=== PATIENT | male | born 1940 | race Caucasian/White ===

== ENCOUNTER 2016-08-22 14:32 | Inpatient (IN) ==
[2016-08-22] MEDS ORDERED: ASPIRIN 325 MG TABLET PO STA (14:50)
[2016-08-22] MEDS ORDERED: ENOXAPARIN 100 MG/ML SYRINGE SUBCUT STA (14:50)
[2016-08-22] MEDS ORDERED: ASPIRIN 325 MG TABLET ONE (14:51)
[2016-08-22] MEDS ORDERED: ENOXAPARIN 100 MG/ML SYRINGE SUBCUT ONE (14:51)
--- NOTE | 2016-08-22 14:53 | EKG Report ---
Stationary ECG Study [facility] ER Test Date: 08/22/2016 2:43:50 PM Pat Name: MONSERRAT HOANG Department: Room: 262 Gender: M Commissions Analyst: : 1940 Requested by: Jerry Gonzalez Order Number: [id number] Reading MD: MARK NG Intervals [place] Rate: 63 P: 61 NM: 150 QRS: 73 QRSD: 98 T: 137 QT: 454 QTc: 461 Interpretive Statements SINUS RHYTHM WITH FREQUENT SUPRAVENTRICULAR PREMATURE COMPLEXES Extensive anterior MT, PROBABLY RECENT Electronically Signed On 08-23-16 13:42:50 CDT by MARK NG [id number]
[2016-08-22 15:08] LABS: Basophils # 0.1 10*3/uL (0.0-0.2); Basophils % 0.9 % (0.0-0.8); Eosinophils # 0.5 10*3/uL (0.0-0.87); Eosinophils % 6.3 % (0.00-10.9); Hematocrit 43.1 VOL% (35.7-47.0); Hemoglobin 14.8 GM/DL (12.0-16.0); Immature Granulocytes % 0.3 %; Immature Granulocytes Absolute 0.02 #; Lymphocytes # 2.6 10*3/uL (1.4-4.0); Mean Corpuscular HGB Conc 34.3 GM/DL (32-36); Mean Corpuscular Hemoglobin 33 PG (27-34); Mean Corpuscular Volume 94.9 FL (87-102); Monocytes # 0.6 10*3/uL (0.11-0.8); Monocytes % 7.6 % (1.7-12.7); Neutrophils # 3.8 10*3/uL (1.4-7.4); Neutrophils % 50.9 % (38.7-73.9); Platelet Count 186 T/CUMM (130-400); Red Blood Count 4.54 MC/CUMM (3.8-5.5); Red Cell Distribution Width 13.5 % (9.3-17.3); White Blood Count 7.5 T/CUMM (4-12)
--- NOTE | 2016-08-22 15:09 | XRay Report ---
Portable chest. Indication: Chest pain. No prior studies. The heart is mildly enlarged. The pulmonary vasculature is normal. The lung alexandra are clear. No pneumothorax or pleural effusion. Mild degenerative changes and scoliosis of the spinal column. Impression: Mild cardiomegaly. PROCEDURE INTERPRETED AT [facility] Final Report Signed by: Dr. Dipika Jean
[2016-08-22 15:20] LABS: PT Patient Result 10.7 SECS
[2016-08-22 15:22] LABS: Alanine Aminotransferase 17 U/L (13-56); Albumin 3.7 G/DL (3.4-5.0); Alkaline Phosphatase 75 U/L (45-117); Aspartate Amino Transferase 15 U/L (0-37); Bilirubin,Total < 0.39 MG/DL (0.2-1.0); Blood Urea Nitrogen 12 MG/DL (7-18); Calcium 8.6 MG/DL (8.5-10.1); Glucose 91 MG/DL (74-106); Magnesium 2.2 MG/DL (1.8-2.4); Osmolality,Calculated 280.3 MOS/KG (273-304); Sodium 141 MMOL/L (136-145); Total Protein 6.9 G/DL (6.4-8.3)
--- NOTE | 2016-08-22 15:33 | Emergency Department Note ---
Josafat Conner Hilary, am scribing for, and in the presence of, Jerry Morales MD 14:52. Andrew Conner Phillip K, MD, personally performed the services described in this documentation, ascribed by Colleen Maurice in my presence, and it is both accurate and complete 533 . Arrival - Arrival Stated Complaint: CAME FROM [facility] CHECKIN IN FOR MINOR HEART ATTACK Mode of Arrival: Ambulatory Limitations: No Limitations Source: Patient, RN Notes Reviewed - History of Present Illness HPI Narrative: Pt is a 76 y/o male presenting to the ED from the [facility] for an evaluation for a possible Minor heart attack. He denies any pain, sob, chills, diaphoresis or nausea. No other complaints or problems stated in the ED. Pt has a PMHx of HTN and stent. Onset (ago): minute(s) Consistency: constant Severity: mild Severity scale (1-10): 1 Allergies/Adverse Reactions: Allergies Allergy/AdvReac Type Severity Reaction Status Date / Time No Known Allergies Allergy Verified 08/22/16 14:43 Review of System - Review of System 12 point system: reviewed and no additional remarkable complaints except as stated - Review of System Constitutional: Absent: chills, diaphoresis, fever Respiratory: Absent: respiratory distress (SOB) Cardiovascular: Absent: chest pain Gastrointestinal: Absent: nausea, vomiting Exam Vital Signs: Vital Signs Temperature 98.5 F 08/22/16 14:39 Pulse Rate 63 08/22/16 14:39 Respiratory Rate 20 08/22/16 14:39 Blood Pressure 138/81 08/22/16 14:39 O2 Sat by Pulse Oximetry 98 08/22/16 14:39 - General General appearance: alert, in no apparent distress - Head Head exam: Present: atraumatic, normocephalic - Eye Eye exam: Present: normal appearance, PERRL, EOMI - ENT ENT exam: Present: mucous membranes moist, mucous membranes dry - Neck Neck exam: Present: full ROM, trachea midline. Absent: tenderness - Chest Chest inspection: Present: symmetric chest wall rise. Absent: tenderness - Respiratory Respiratory exam: Present: normal lung sounds bilaterally. Absent: respiratory distress - Cardiovascular Cardiovascular exam: Present: regular rate, irregular rhythm, normal heart sounds. Absent: murmur, rubs, gallop - Abdominal Exam Abdominal exam: Present: soft, normal bowel sounds. Absent: distention, tenderness - Extremities Exam Extremities exam: Present: full ROM, pedal edema (1+ edema in right lower extremety that is chronic). Absent: tenderness - Back Exam Back exam: Present: full ROM. Absent: tenderness - Neurological Exam Neurological exam: Present: alert, oriented X3, CN II-XII intact. Absent: motor sensory deficit - Psychiatric Psychiatric exam: Present: normal affect, normal mood - Skin Skin exam: Present: warm, dry, intact, normal color. Absent: rash Course Course Narrative: Patient discussed with Dr. Hope 348. We will admit overnight for serial enzymes and evaluation. Results - Labs CBC & BMP: 08/22/16 14:45 08/22/16 14:45 Lab Results: I have reviewed the patients labs (Troponin is 0.217) - EKG EKG results: interpreted by DONNA, sinus rhythm ( ST elevation noted in the anterior septal leads with Q waves. Patient also has some ST elevation in leads I and aVL with Q waves. Appears to be a subacute myocardial infarction. Patient denies any chest pain.) - Diagnostic Findings Procedure: Chest x-ray: report reviewed by me (Mild cardiomegaly) Disposition Clinical Impression: Elevated troponin, Abnormal EKG Case discussed with: patient Disposition: Still a Patient Condition: Guarded Additional Instructions: Admit to the cardiology service
[2016-08-22] MEDS ORDERED: MORPHINE 2 MG/1 ML SYRINGE IV PRN (18:39)
[2016-08-22] MEDS ORDERED: ACETAMINOPHEN 325 MG TABLET PO PRN (18:39)
[2016-08-22] MEDS ORDERED: ONDANSETRON 4 MG/2 ML VIAL IV PRN (18:39)
[2016-08-22] MEDS ORDERED: DOCUSATE SODIUM 100 MG CAPSULE PO PRN (18:39)
[2016-08-22] MEDS ORDERED: MAGNESIUM SULF RIDER 4 GM in PREMIX 1 EACH IV PRN (18:39)
[2016-08-22] MEDS ORDERED: traZODone 50 MG TABLET PO PRN (18:39)
[2016-08-22] MEDS ORDERED: MAGNESIUM SULF RIDER 2 GM in PREMIX 1 EACH IV PRN (18:39)
[2016-08-22] MEDS ORDERED: TICAGRELOR 90 MG TABLET PO ONE (18:42)
[2016-08-22] MEDS ORDERED: PANTOPRAZOLE 40 MG TABLET PO STA (18:44)
[2016-08-22] MEDS ORDERED: NITROGLYCERIN SL 0.4 MG TABLET SL PRN (18:45)
[2016-08-22] MEDS ORDERED: traMADol 50 MG TABLET PO PRN (18:46)
[2016-08-22] MEDS ORDERED: PANTOPRAZOLE 40 MG TABLET PO ONE (18:49)
--- NOTE | 2016-08-22 18:51 | Cardiology History & Physical ---
Assessment and Plan (1) NSTEMI (non-ST elevated myocardial infarction) Status: Acute Assessment and plan: 76-year-old male, presenting with recent myocardial infarction, currently angina free and hemodynamically stable. Active smoker, hypertension, hyperlipidemia. History of prior CAD, stent, which is not well documented. -Admit to telemetry, trend cardiac enzymes, recheck EKG. -Echo. -We will proceed with stress test, assess ischemic risk. He will need invasive evaluation, if still has large ischemic risk or significant cardiomyopathy -Continue aspirin. -Start Brilinta loading -Full dose Lovenox for now. -PPI -Switch lovastatin to Crestor 40 mg nightly. -Metoprolol 25 mg twice daily. Mild sinus bradycardia, PACs. -If ejection fraction depressed, will add ACEI -Cardiac Rehab consult, smoking cessation Current Visit: Yes (2) HTN (hypertension) Status: Acute Current Visit: Yes (3) Hyperlipidemia Status: Acute Current Visit: Yes History of Present Illness Chief complaint: NSTEMI History of present illness: Mr. Noel is a 76 year old male, better on. History of hypertension, hyperlipidemia, remote history of stent, which is not documented. He developed mild retrosternal chest pain, with some left-sided radiation to 3 days ago, was not associated deactivated and then improved after a day or so. There was no palpitations dizziness lightheadedness syncope or dyspnea. [facility] and [facility] to [facility] room as the EKG shows recent anterolateral DC. Currently, he is chest pain-free and hemodynamically stable. He is still an active smoker but takes his medications. There is no claudication dyspnea exertion, nocturnal dyspnea. Initial troponin was mildly elevated. Mild sinus bradycardia, with occasional PACs on telemetry. Home Medications Medication Instructions Recorded Confirmed Type Losartan [Cozaar] 25 mg PO DAILY 08/22/16 08/22/16 History Lovastatin 40 mg PO BEDTIME 08/22/16 08/22/16 History Metoprolol Succinate 75 mg PO DAILY 08/22/16 08/22/16 History Omeprazole [Prilosec] 40 mg PO DAILY 08/22/16 08/22/16 History Spironolactone 25 mg PO DAILY 08/22/16 08/22/16 History Tramadol HCl [Tramadol Tab] 50 mg PO Q8H PRN 08/22/16 08/22/16 History Allergies Allergy/AdvReac Type Severity Reaction Status Date / Time No Known Allergies Allergy Verified 08/22/16 14:43 12 point system: reviewed and no additional remarkable complaints except as stated Medical,Surgical,& Family Hx - Medical History Cardio: History of: Hypertension, DC (01/2014) - Social History Smoking Status: Current every day smoker Frequency of Alcohol Use: Occasionally Type of Drug Use: None Cardiology Physical Exam - Constitutional Vitals: Vital Signs Temp Pulse Resp BP Pulse Ox 98.5 F 63 20 138/81 98 08/22/16 14:39 08/22/16 14:39 08/22/16 14:39 08/22/16 14:39 08/22/16 14:39 Intake and Output 08/22/16 08/22/16 08/22/16 07:59 15:59 23:59 Other: Weight 87.997 kg Patient Weight 08/22/16 23:59 Weight 87.997 kg General appearance: normal weight, no acute distress - Head Head exam: Present: normal inspection, normocephalic - Eye Eye exam: Absent: conjunctival injection, periorbital swelling Pupils: Absent: constricted - ENT ENT exam: Present: normal external ear exam - Neck Neck exam: Present: normal inspection - Respiratory Respiratory exam: Present: clear to auscultation bilaterally. Absent: accessory muscle use - Cardiovascular Cardiovascular exam: Present: bradycardia, regular rate and rhythm, systolic murmur. Absent: JVD - GI/Abdominal GI/Abdominal exam: Present: normal bowel sounds. Absent: distended - Extremities Exam Extremities exam: Present: normal inspection, normal capillary refill. Absent: edema - Back Exam Back exam: Present: normal inspection - Neurological Exam Neurological exam: Present: alert, oriented X3 - Psychiatric Psychiatric exam: Present: normal affect, normal mood - Skin Skin exam: Present: normal color, warm. Absent: cyanosis Result/EKG - Labs CBC & BMP: 08/22/16 14:45 08/22/16 14:45 Lab Results: I have reviewed the past 24 hour labs Labs: Laboratory Results - last 24 hr 08/22/16 08/22/16 08/22/16 14:45 14:45 14:45 WBC 7.5 RBC 4.54 Hgb 14.8 Hct 43.1 MCV 94.9 MCH 33 MCHC 34.3 RDW 13.5 Plt Count 186 MPV 11.0 Neut % (Auto) 50.9 Lymph % (Auto) 34.0 [place] % (Auto) 7.6 Eos % (Auto) 6.3 Baso % (Auto) 0.9 H Neut # (Auto) 3.8 Lymph # (Auto) 2.6 [place] # (Auto) 0.6 Eos # (Auto) 0.5 Baso # (Auto) 0.1 Immature Gran % 0.3 Nucleated RBC % 0.0 Immature Gran # 0.02 Nucleated RBCs # 0.00 INR 1.0 PT Patient/Control Mix 10.7 Sodium 141 Potassium 4.0 Chloride 106 Carbon Dioxide 26 Anion Gap 13.0 BUN 12 Creatinine 0.80 GFR Calculation 89 BUN/Creatinine Ratio 15.00 Glucose 91 Calculated Osmolality 280.3 Calcium 8.6 Magnesium 2.2 Total Bilirubin < 0.39 AST 15 ALT 17 Alkaline Phosphatase 75 Troponin I Total Protein 6.9 Albumin 3.7 Globulin 3.2 Albumin/Globulin Ratio 1.1 08/22/16 14:45 WBC RBC Hgb Hct MCV MCH MCHC RDW Plt Count MPV Neut % (Auto) Lymph % (Auto) [place] % (Auto) Eos % (Auto) Baso % (Auto) Neut # (Auto) Lymph # (Auto) [place] # (Auto) Eos # (Auto) Baso # (Auto) Immature Gran % Nucleated RBC % Immature Gran # Nucleated RBCs # INR PT Patient/Control Mix Sodium Potassium Chloride Carbon Dioxide Anion Gap BUN Creatinine GFR Calculation BUN/Creatinine Ratio Glucose Calculated Osmolality Calcium Magnesium Total Bilirubin AST ALT Alkaline Phosphatase Troponin I 0.217 H Total Protein Albumin Globulin Albumin/Globulin Ratio - EKG EKG results: interpreted by me
[2016-08-22] MEDS ORDERED: ROSUVASTATIN 20 MG TABLET PO SCH (21:00)
[2016-08-22] MEDS ORDERED: ROSUVASTATIN 10 MG TABLET PO SCH (21:00)
[2016-08-22] MEDS ORDERED: LOVASTATIN 20 MG TABLET PO SCH (21:00)
[2016-08-22] MEDS: ROSUVASTATIN 20 MG TABLET PO SCH (21:44)
[2016-08-22] MEDS: METOPROLOL TARTRATE 25 MG TABLET PO SCH (21:45)
[2016-08-23] MEDS: ENOXAPARIN 100 MG/ML SYRINGE SUBCUT SCH ×2 (04:08→15:57)
[2016-08-23 06:13] LABS: Basophils % 0.7 % (0.0-0.8); Eosinophils # 0.4 10*3/uL (0.0-0.87); Eosinophils % 6.1 % (0.00-10.9); Hematocrit 39.8 VOL% (42.0-52.0); Hemoglobin 13.6 GM/DL (14.0-18.0); Immature Granulocytes % 0.2 %; Immature Granulocytes Absolute 0.01 #; Lymphocytes # 1.7 10*3/uL (1.4-4.0); Lymphocytes % 28.5 % (21.2-54.2); Mean Corpuscular HGB Conc 34.2 GM/DL (32-36); Mean Corpuscular Hemoglobin 32 PG (27-34); Mean Corpuscular Volume 93.9 FL (87-102); Mean Platelet Volume 10.7 FL (9.6-12.0); Monocytes # 0.6 10*3/uL (0.11-0.8); Monocytes % 9.1 % (1.7-12.7); Neutrophils # 3.4 10*3/uL (1.4-7.4); Neutrophils % 55.4 % (38.7-73.9); Platelet Count 160 T/CUMM (130-400); Red Blood Count 4.24 MC/CUMM (3.8-5.5); Red Cell Distribution Width 13.4 % (9.3-17.3)
[2016-08-23 06:58] LABS: Albumin 3.1 G/DL (3.4-5.0); Bilirubin,Total 0.6 MG/DL (0.2-1.0); Calcium 8.4 MG/DL (8.5-10.1); Magnesium 2.2 MG/DL (1.8-2.4); Risk Ratio 3.33; Thyroid Stimulating Hormone 1.31 uIU/ml (0.358-3.74); Total Protein 5.7 G/DL (6.4-8.3); VLDL CHOLESTEROL 20.2 MG/DL
--- NOTE | 2016-08-23 07:03 | EKG Report ---
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
[2016-08-23] MEDS ORDERED: DEXTROSE 50% 25 GM/50 ML VIAL IV PRN (10:07)
[2016-08-23] MEDS ORDERED: GLUCAGON 1 MG VIAL IM PRN (10:07)
[2016-08-23] MEDS: METOPROLOL TARTRATE 25 MG TABLET PO SCH (10:08)
[2016-08-23] MEDS: SPIRONOLACTONE 25 MG TABLET PO SCH (10:14)
[2016-08-23] MEDS: ASPIRIN EC 81 MG TABLET PO SCH (10:14)
[2016-08-23] MEDS: PANTOPRAZOLE 40 MG TABLET PO SCH (10:14)
[2016-08-23] MEDS: LOSARTAN 25 MG TABLET PO SCH (10:15)
[2016-08-23] MEDS: TICAGRELOR 90 MG TABLET PO SCH ×2 (10:15→20:33)
--- NOTE | 2016-08-23 11:18 | Cardiology Progress Note ---
Assessment and Plan (1) NSTEMI (non-ST elevated myocardial infarction) Status: Acute Assessment and plan: 76-year-old male, presenting with recent myocardial infarction, currently angina free and hemodynamically stable. Active smoker, hypertension, hyperlipidemia. History of prior CAD, stent, which is not well documented. [employer] 08/23: LVEF 19%, extensive anterior ND, with periinfacrt ischemia He remained free of angina and without symptoms of heart failure with light activity. -cont ASA, Brilinta, full dose LMWH -PPI -Cont Crestor 40 mg nightly. -Hold BB. HR in the 40s at rest -Cont Cozaar 25 mg qd -If blood pressure/renal Fx remains stable, may add Aldactone. -Cardiac Rehab consult, smoking cessation -Interventional consult. Severe ICM, recent ND, with a large area suggestive of norman-infarct ischemia. May benefit from salvage revascularization. -Keep on telemetry Current Visit: Yes (2) HTN (hypertension) Status: Acute Current Visit: Yes (3) Hyperlipidemia Status: Acute Current Visit: Yes Cardiology - PN: Subj Interval history: He is feeling fine. SB on tele, BB was held. Severe ICM on [employer]. No significant arrhythmia on telemetry. Exam (Progress Note) - Constitutional Vitals: Period Temp Pulse Resp BP Sys/Heredia Pulse Ox Last 24 Hr 96.2 F-98.7 F 47-67 16-20 107-138/67-81 90-98 General appearance: normal weight, no acute distress - Head Head exam: Present: normal inspection - Eye Eye exam: Absent: conjunctival injection, scleral icterus Pupils: Absent: dilated - ENT ENT exam: Present: normal external ear exam - Neck Neck exam: Present: normal inspection - Respiratory Respiratory exam: Present: clear to auscultation bilaterally. Absent: wheezes - Cardiovascular Cardiovascular exam: Present: bradycardia, systolic murmur. Absent: JVD - GI/Abdominal GI/Abdominal exam: Present: normal bowel sounds, distended - Extremities Exam Extremities exam: Present: normal inspection, normal capillary refill. Absent: edema - Back Exam Back exam: Present: normal inspection - Neurological Exam Neurological exam: Present: alert, oriented X3 - Psychiatric Psychiatric exam: Present: normal affect, normal mood - Skin Skin exam: Present: normal color, warm. Absent: cyanosis Result/EKG - Labs CBC & BMP: 08/23/16 06:04 08/23/16 06:04 Lab Results: I have reviewed the past 24 hour labs Labs: Laboratory Results - last 24 hr 08/22/16 08/22/16 08/22/16 14:45 14:45 14:45 WBC 7.5 RBC 4.54 Hgb 14.8 Hct 43.1 MCV 94.9 MCH 33 MCHC 34.3 RDW 13.5 Plt Count 186 MPV 11.0 Neut % (Auto) 50.9 Lymph % (Auto) 34.0 [place] % (Auto) 7.6 Eos % (Auto) 6.3 Baso % (Auto) 0.9 H Neut # (Auto) 3.8 Lymph # (Auto) 2.6 [place] # (Auto) 0.6 Eos # (Auto) 0.5 Baso # (Auto) 0.1 Immature Gran % 0.3 Nucleated RBC % 0.0 Immature Gran # 0.02 Nucleated RBCs # 0.00 INR 1.0 PT Patient/Control Mix 10.7 Sodium 141 Potassium 4.0 Chloride 106 Carbon Dioxide 26 Anion Gap 13.0 BUN 12 Creatinine 0.80 GFR Calculation 89 BUN/Creatinine Ratio 15.00 Glucose 91 POC Glucose Calculated Osmolality 280.3 Calcium 8.6 Magnesium 2.2 Total Bilirubin < 0.39 AST 15 ALT 17 Alkaline Phosphatase 75 Troponin I Total Protein 6.9 Albumin 3.7 Globulin 3.2 Albumin/Globulin Ratio 1.1 Triglycerides Cholesterol LDL Cholesterol VLDL Cholesterol HDL Cholesterol Heart Disease Risk Ratio Free T4 TSH 3rd Generation 08/22/16 08/22/16 08/22/16 14:45 18:51 22:07 WBC RBC Hgb Hct MCV MCH MCHC RDW Plt Count MPV Neut % (Auto) Lymph % (Auto) [place] % (Auto) Eos % (Auto) Baso % (Auto) Neut # (Auto) Lymph # (Auto) [place] # (Auto) Eos # (Auto) Baso # (Auto) Immature Gran % Nucleated RBC % Immature Gran # Nucleated RBCs # INR PT Patient/Control Mix Sodium Potassium Chloride Carbon Dioxide Anion Gap BUN Creatinine GFR Calculation BUN/Creatinine Ratio Glucose POC Glucose Calculated Osmolality Calcium Magnesium Total Bilirubin AST ALT Alkaline Phosphatase Troponin I 0.217 H 0.206 H 0.213 H Total Protein Albumin Globulin Albumin/Globulin Ratio Triglycerides Cholesterol LDL Cholesterol VLDL Cholesterol HDL Cholesterol Heart Disease Risk Ratio Free T4 TSH 3rd Generation 08/23/16 08/23/16 08/23/16 06:04 06:04 06:04 WBC 6.0 RBC 4.24 Hgb 13.6 L Hct 39.8 L MCV 93.9 MCH 32 MCHC 34.2 RDW 13.4 Plt Count 160 MPV 10.7 Neut % (Auto) 55.4 Lymph % (Auto) 28.5 [place] % (Auto) 9.1 Eos % (Auto) 6.1 Baso % (Auto) 0.7 Neut # (Auto) 3.4 Lymph # (Auto) 1.7 [place] # (Auto) 0.6 Eos # (Auto) 0.4 Baso # (Auto) 0.0 Immature Gran % 0.2 Nucleated RBC % 0.0 Immature Gran # 0.01 Nucleated RBCs # 0.00 INR PT Patient/Control Mix Sodium 143 Potassium 4.0 Chloride 109 H Carbon Dioxide 24 Anion Gap 14.0 BUN 15 Creatinine 0.80 GFR Calculation 107 BUN/Creatinine Ratio 18.00 Glucose 91 POC Glucose Calculated Osmolality 285.0 Calcium 8.4 L Magnesium 2.2 Total Bilirubin 0.60 AST 10 ALT 14 L Alkaline Phosphatase 62 Troponin I Total Protein 5.7 L Albumin 3.1 L Globulin 2.6 Albumin/Globulin Ratio 1.1 Triglycerides 101 Cholesterol 163 LDL Cholesterol 95.0 VLDL Cholesterol 20.2 HDL Cholesterol 49 Heart Disease Risk Ratio 3.33 Free T4 0.98 TSH 3rd Generation 1.310 08/23/16 07:16 WBC RBC Hgb Hct MCV MCH MCHC RDW Plt Count MPV Neut % (Auto) Lymph % (Auto) [place] % (Auto) Eos % (Auto) Baso % (Auto) Neut # (Auto) Lymph # (Auto) [place] # (Auto) Eos # (Auto) Baso # (Auto) Immature Gran % Nucleated RBC % Immature Gran # Nucleated RBCs # INR PT Patient/Control Mix Sodium Potassium Chloride Carbon Dioxide Anion Gap BUN Creatinine GFR Calculation BUN/Creatinine Ratio Glucose POC Glucose 85 Calculated Osmolality Calcium Magnesium Total Bilirubin AST ALT Alkaline Phosphatase Troponin I Total Protein Albumin Globulin Albumin/Globulin Ratio Triglycerides Cholesterol LDL Cholesterol VLDL Cholesterol HDL Cholesterol Heart Disease Risk Ratio Free T4 TSH 3rd Generation - EKG EKG results: interpreted by me
--- NOTE | 2016-08-23 11:53 | EKG Report ---
Stationary ECG Study [facility] Test Date: 08/22/2016 9:33:22 PM Pat Name: MONSERRAT HOANG Department: Room: 262 Gender: M Rest Room Attendant: : 1940 Requested by: Jerry Gonzalez Order Number: [id number] Reading MD: MARK NG Intervals [place] Rate: 54 P: 81 [place]: 155 QRS: 86 QRSD: 105 T: 133 QT: 503 QTc: 488 Interpretive Statements SINUS BRADYCARDIA ANTEROLATERAL INFARCT, AGE UNDETERMINED MODERATE ST DEPRESSION Electronically Signed On 08-23-16 13:43:04 CDT by MARK NG [email or web address]
--- NOTE | 2016-08-23 13:25 | ECHO Report ---
Chris Noel Exam Date: 08/23/2016 12:11 Referring Physician: Technologist: Age: 76 Ht (in): Wt (lb): Gender: M Exam Location: [facility] Echo Indications: BP: / HR: Rhythm: Sinus Technical Quality: IMPRESSIONS Moderately dilated left ventricle, with mild hypertrophy of the basal segments. The mid anteroseptal, anterior and anterolateral segments and the apical segments, including the apex are thinned and akinetic. The posterior wall and the basal segments thicken normally. There is a small, hyperdense mass of 3x4 mm size is seen at the edge of the apex/apical anterolateral wall, suggestive of an old thrombus. Estimated left ventricle ejection fraction 20%. Grade 1 diastolic dysfunction. The right ventricle is normal in size, with decreased systolic function. The left atrium is mildly dilated. Structurally normal mitral valve, with mild regurgitation. Mild aortic valve sclerosis, without stenosis, with mild insufficiency. MEASUREMENTS (Male / Female) Normal Values DOPPLER TR Peak Velocity 210.0 cm/s TR Peak Gradient 17.6 mmHg FINDINGS Left Ventricle Moderately dilated left ventricle, with mild hypertrophy of the basal segments. The mid anteroseptal, anterior and anterolateral segments and the apical segments, including the apex are thinned and akinetic. The posterior wall and the basal segments thicken normally. There is a small, hypertensive density of 3x4 mm size is seen at the edge of the apex/apical anterolateral wall, suggestive of an old thrombus. Estimated left ventricle ejection fraction 20%. Grade 1 diastolic dysfunction. Right Ventricle The right ventricle is normal in size, with decreased systolic function. Right Atrium The right atrium is normal in size. Left Atrium The left atrium is mildly dilated. Mitral Valve Structurally normal mitral valve, with mild regurgitation Aortic Valve Mild aortic valve sclerosis, without stenosis, with a mild insufficiency. Tricuspid Valve Structurally normal tricuspid valve, with mild insufficiency. Estimated pulmonary artery systolic pressure 20 mmHg plus right atrial pressure. Pulmonic Valve Not well visualized. Pericardium No pericardial effusion Aorta The aortic root is of normal size. Brayan Kim (Electronically Signed) Final Date: 23 August 2016 13:23
--- NOTE | 2016-08-23 17:53 | Event Note ---
Patient's chart is reviewed. Will be for heart cath on Thursday at about 9 AM. Thank you for this interventional consult.
[2016-08-23] MEDS: ROSUVASTATIN 20 MG TABLET PO SCH (20:33)
[2016-08-24] MEDS: ENOXAPARIN 100 MG/ML SYRINGE SUBCUT SCH ×2 (02:30→15:34)
--- NOTE | 2016-08-24 09:10 | Cardiology Progress Note ---
Assessment and Plan (1) NSTEMI (non-ST elevated myocardial infarction) Status: Acute Assessment and plan: 76-year-old male, presenting with recent myocardial infarction, currently angina free and hemodynamically stable. Active smoker, hypertension, hyperlipidemia. History of prior CAD, stent, which is not well documented. 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 -cont ASA, Brilinta, full dose LMWH. No bleeding issues. -PPI -Cont Crestor 40 mg nightly. -Hold BB. HR in the 40s at rest -Cont Cozaar 25 mg qd -Continue Aldactone -Cardiac Rehab consult, smoking cessation -Appreciate interventional consult. [facility] planned tomorrow. Severe ICM, large fixed defect, with an area suggestive of norman-infarct ischemia. May benefit from salvage revascularization. -Keep on telemetry Current Visit: Yes (2) HTN (hypertension) Status: Acute Current Visit: Yes (3) Hyperlipidemia Status: Acute Current Visit: Yes Cardiology - PN: Subj Interval history: He remains in good spirits. No chest pain. No significant arrhythmia on telemetry. The blood pressure well controlled, he is still bradycardic in the 40s, not symptom Exam (Progress Note) - Constitutional Vitals: Period Temp Pulse Resp BP Sys/Heredia Pulse Ox Last 24 Hr 97.4 F-98.6 F 44-54 16-20 96-117/53-71 92-99 General appearance: normal weight, no acute distress - Head Head exam: Present: normal inspection, normocephalic - Eye Eye exam: Absent: conjunctival injection, scleral icterus Pupils: Absent: dilated - ENT ENT exam: Present: normal external ear exam - Neck Neck exam: Present: normal inspection - Respiratory Respiratory exam: Present: clear to auscultation bilaterally. Absent: decreased breath sounds - Cardiovascular Cardiovascular exam: Present: regular rate and rhythm, systolic murmur. Absent : JVD - GI/Abdominal GI/Abdominal exam: Present: normal bowel sounds - Extremities Exam Extremities exam: Present: normal inspection, normal capillary refill. Absent: edema - Back Exam Back exam: Present: normal inspection - Neurological Exam Neurological exam: Present: alert, oriented X3 - Psychiatric Psychiatric exam: Present: normal affect, normal mood - Skin Skin exam: Present: normal color, warm. Absent: cyanosis Result/EKG - Labs CBC & BMP: 08/23/16 06:04 08/23/16 06:04 Lab Results: I have reviewed the past 24 hour labs Labs: Laboratory Results - last 24 hr 08/23/16 07:16 POC Glucose 85 - EKG EKG results: interpreted by me
[2016-08-24] MEDS: TICAGRELOR 90 MG TABLET PO SCH ×2 (09:12→21:11)
[2016-08-24] MEDS: LOSARTAN 25 MG TABLET PO SCH (09:13)
[2016-08-24] MEDS: SPIRONOLACTONE 25 MG TABLET PO SCH (09:13)
[2016-08-24] MEDS: PANTOPRAZOLE 40 MG TABLET PO SCH (09:13)
[2016-08-24] MEDS: ASPIRIN EC 81 MG TABLET PO SCH (09:13)
[2016-08-24] MEDS ORDERED: POTASSIUM CHLORIDE RIDER 10 MEQ in PREMIX 1 EACH IV PRN (16:29)
[2016-08-24] MEDS ORDERED: diphenhydrAMINE CAP 25 MG CAPSULE PO ONE (16:29)
[2016-08-24] MEDS ORDERED: DIAZEPAM 5 MG TABLET PO ONE (16:29)
[2016-08-24] MEDS ORDERED: MAGNESIUM SULF RIDER 2 GM in PREMIX 1 EACH IV PRN (16:29)
--- NOTE | 2016-08-24 16:36 | History and Physical Update ---
Sedation H&P Update - History and Physical H&P was reviewed, the patient examined and there: are no changes in the patients condition since last H&P was completed. - Dictation Physical: refer to H&P completed by admitting physician - Physical Exam Mental Status: alert and oriented Heart: regular rate and rhythm Lung: clear to auscultation Abdomen: within normal limits Vitals: within normal limits - Sedation Plan for Sedation: minimal, moderate, MAC, other Patient Consent: Procedure disscussed with patient and patinet has consented., Risks and benefits were discussed with patient,including infection,, bleeding, injury to surrounding structures, seizure, temporary nerve, Patient understands and accepts potential risks/benefits and agrees to, proceed. ASA Class: III Airway Assessment: Class II: Soft palate, uvula, fauces visible
[2016-08-24] MEDS: ROSUVASTATIN 20 MG TABLET PO SCH (21:11)
[2016-08-24] MEDS: SODIUM CHLORIDE 0.9% 1,000 ML IV SCH (23:26)
[2016-08-25] MEDS: ENOXAPARIN 100 MG/ML SYRINGE SUBCUT SCH (03:02)
[2016-08-25 05:49] LABS: Bilirubin,Total 0.7 MG/DL (0.2-1.0); Calcium 8.3 MG/DL (8.5-10.1); Total Protein 5.8 G/DL (6.4-8.3)
[2016-08-25 05:50] LABS: Albumin 3.1 G/DL (3.4-5.0); Osmolality,Calculated 280.3 MOS/KG (273-304); Potassium 4.1 MMOL/L (3.5-5.1)
[2016-08-25] MEDS ORDERED: diphenhydrAMINE CAP 25 MG CAPSULE PO ONE (06:53)
[2016-08-25] MEDS ORDERED: DIAZEPAM 5 MG TABLET PO ONE (06:53)
[2016-08-25] MEDS: ASPIRIN EC 81 MG TABLET PO SCH ×2 (07:06→09:50)
[2016-08-25] MEDS: LOSARTAN 25 MG TABLET PO SCH ×2 (07:07→09:50)
[2016-08-25] MEDS: TICAGRELOR 90 MG TABLET PO SCH ×3 (07:07→21:57)
--- NOTE | 2016-08-25 07:07 | EKG Report ---
Stationary ECG Study [facility] Test Date: 08/25/2016 7:07:11 AM Pat Name: MONSERRAT HOANG Department: Room: 262 Gender: M Rough Patcher: RODERICK : 1940 Requested by: Harman Hope Order Number: [id number] Reading MD: FRANCISCO JAVIER BUTT Intervals [place] Rate: 53 P: 88 [place]: 155 QRS: 69 QRSD: 97 T: 129 QT: 467 QTc: 451 Interpretive Statements SINUS BRADYCARDIA WITH OCCASIONAL SUPRAVENTRICULAR PREMATURE COMPLEXES ANTEROSEPTAL INJURY PATTERN SUGGESTING ACUTE MYOCARDIAL INFARCTION Electronically Signed On 08-25-16 07:37:59 CDT by FRANCISCO JAVIER BUTT [email or web address]
[2016-08-25] MEDS ORDERED: LIDOCAINE 1% 20 ML VIAL ONE (07:24)
[2016-08-25] MEDS ORDERED: MIDAZOLAM 2 MG/2 ML VIAL ONE (07:29)
[2016-08-25] MEDS ORDERED: MEPERIDINE 25 MG/1 ML VIAL ONE (07:29)
--- NOTE | 2016-08-25 07:48 | Nuclear Medicine Report ---
EXERCISE STRESS TEST Test was performed and interpreted by Brayan Kim MD. INDICATION: Recent UT, chest pain. PROCEDURE: At rest, 10 mCi of 99-Technetium labeled Sestamibi was injected and rest images were obtained. The patient then exercised according to the Mohan treadmill stress protocol. At peak stress, 30 mCi of 99-Technetium labeled Sestamibi was injected and post-stress images were obtained. FINDINGS: At rest, heart rate 57 beats per minute, sinus bradycardia with PACs. There are anterior Q waves, with 0.5-mm ST elevation in V2, V3, and V4, with T-wave inversion. The rest blood pressure is 119/79 mmHg. The patient exercised for 3 minutes 28 seconds with the Mohan treadmill protocol, reaching the peak heart rate of 135 beats per minute, 88% of the maximal, age-predicted heart rate. The blood pressure deepak to 160/80 mmHg. During stress, occasional PACs and PVCs were noted. At peak stress, the anterior T waves remained unchanged. The anterior ST elevation deeapk to 1 mm and the T waves became shallow. There was no chest pain, but the patient complained of severe shortness of breath, which led to termination events. Normal rest phase. The blood pressure deepak to 160/80 mmHg. The peak exercise was 5.0 METS. Rest and gated perfusion and stress images were reviewed. There are no significant motion artifacts. The left ventricle was severely dilated, the end-diastolic volume was calculated at 300 mL, the end-systolic volume is 243 mL, the calculated left ventricular ejection fraction is 19%. The basal and the mid inferior wall segments contract normally, the apex is akinetic, the remaining segments are hypokinetic. The anterior/apical segments show excess of radioisotope uptake, suggestive of old myocardial disease. There are two areas , the mid septal/apical segments and the mid anterior segments are moderately photopenic at rest, became severely photopenic post stress, suggestive of myocardial disease, with superimposed ischemia. CONCLUSION: 1. POOR EXERCISE TOLERANCE, CLINICALLY AND ELECTRICALLY NONDIAGNOSTIC SUBMAXIAL STRESS TEST. BASELINE ABNORMAL EKG. GUTIÉRREZ TREADMILL SCORE 3. 2. SEVERELY DILATED LEFT VENTRICLE, WITH SEVERELY DEPRESSED SYSTOLIC FUNCTION, WITH WALL MOTION ABNORMALITIES DESCRIBED ABOVE. OLD MYOCARDIAL DISEASE, WITH SUPERIMPOSED ISCHEMIA. 3. THIS IS A HIGH RISK TEST. Procedure performed and interpreted at [facility] Department of Radiology. [facility]
[2016-08-25] MEDS ORDERED: HEPARIN 5,000 UNIT/1 ML VIAL ONE (08:10)
[2016-08-25] MEDS ORDERED: TICAGRELOR 90 MG TABLET ONE (08:54)
--- NOTE | 2016-08-25 09:05 | Operative Note ---
Date of procedure: 08/25/16 Procedure Preformed: Left heart cath Coronary angiography Left ventriculography Angiogram of the right femoral artery PTCA of the ostium of the diagonal, a jailed diagonal, large-3.0 x 15 mm NC Trek balloon Loading with Brilinta, 90 mg p.o. Angio-Seal of the right femoral artery-successful Surgeon / Physician: Harman Hope Restorative Coordinator: Cindi Yañez Post-op diagnosis: same (Progressive dyspnea on exertion, history of prior anterior CO and code 3 years ago, abnormal EKG, elevated troponin, abnormal stress test suggesting norman-infarct ischemia) Findings: Impression: Significant ostial stenosis of the major diagonal-this is in intermediate from a prior stent to the LAD Mild disease in other vessels Moderate to severe global left systolic dysfunction, LVEF about 30% Anterolateral and apical dyskinesis Moderate elevation of LVEDP, 20 mmHg Status post successful PTCA of the in jailed ostium of the diagonal, 3.0 x 15 mm NC Trek, to 10 russell, minimal plaque shifting into the LAD Angiogram right femoral artery Angio-Seal of the right femoral artery-successful- Loading with 90 mg of Brilinta, as he had already received 90 mg earlier this morning Plan/recommendations: Will need his study is apparent that the norman-infarct zone of ischemia is probably involving this diagonal. I Intervened. Hopefully he will be better. It might lessen some of his dyspnea on exertion. Meanwhile he will be on the usual medicines for LV systolic dysfunction. His heart rate is slow, so his metoprolol has been held. Maybe could use a very low dose of carvedilol which would be a milder beta-farhana might be better for his LV systolic dysfunction and not cause a significant amount of bradycardia. the patient will have risk factors optimized. The patient will be on antiplatelet medications to include aspirin indefinitely and Plavix or Brilinta for at least a year. Follow-up will be scheduled. Addenda: I saw the patient post-cath. the groin puncture site and distal pulse are stable. vital signs are stable and the patient will be observed closely overnight. Specimens: none sent Estimated blood loss: minimal Condition: stable Anesthesia: local, conscious sedation Disposition: floor
--- NOTE | 2016-08-25 09:24 | EKG Report ---
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
[2016-08-25] MEDS: SODIUM CHLORIDE 0.9% 1,000 ML IV SCH ×2 (09:50→22:10)
[2016-08-25] MEDS: PANTOPRAZOLE 40 MG TABLET PO SCH (09:54)
[2016-08-25] MEDS: SPIRONOLACTONE 25 MG TABLET PO SCH (09:54)
[2016-08-25 10:50] LABS: Troponin I Only 0.191 NG/ML (0.00-0.045)
--- NOTE | 2016-08-25 12:42 | Cardiology Operative Report ---
Date of Procedure:: 08/25/16 Post-op diagnosis: same (Progressive dyspnea on exertion, history of prior anterior NE and code 3 years ago, abnormal EKG, elevated troponin, abnormal stress test suggesting norman-infarct ischemia) Procedure: Patient Name: Chris Noel Date of : 1940 Patient Status: Observation Attending Provider: Brayan Kim Date: 08/25/16 09:03 Initialization Date: 08/25/16 09:03 Date of procedure: 08/25/16 Procedure Preformed: Left heart cath Coronary angiography Left ventriculography Angiogram of the right femoral artery PTCA of the ostium of the diagonal, a jailed diagonal, large-3.0 x 15 mm NC Trek balloon Loading with Brilinta, 90 mg p.o. Angio-Seal of the right femoral artery-successful Surgeon / Physician: Harman Hope Mechanical Supervisor: Cindi Yañez Post-op diagnosis: same (Progressive dyspnea on exertion, history of prior anterior NE and code 3 years ago, abnormal EKG, elevated troponin, abnormal stress test suggesting norman-infarct ischemia) procedure: The patient was prepped and draped in usual manner. Entered the right femoral artery via the Seldinger technique. I used a sheath and then used a JL4 and engaged left coronary. please see the dictated sheets to see the exact catheters which were used. Multiple views were taken. I then exchanged for a JR4. Multiple views of the right coronary were taken. I then exchanged for an angled pigtail. I crossed the valve. Left ventricular end-diastolic pressures measured. Left ventriculography was done. Left ventricle pullback was done. The catheters were then removed from the patient. Please see the data sheets for the details of catheters used. Intervention: Cardiovascular surgery was available for any complications. The coronary intervention was done using a JL4 guiding catheter and 2 x 0.014 run through wire. I placed a wire in the diagonal and also a wire in the distal LAD. After no predilatation, I then placed a 3.0 x 15 mm NC apex across the lesion. I balloon the lesion as pressures and duration which is mention of the days she's. Afterwards, there was a good result. there was no plaque shifting or not significant plaque shifting which cause comprised of the lumen to the mid and distal LAD. Angiogram of the right femoral artery was done, either at that time or as a follow-through from the aortogram/left ventriculogram. Closure device was used -see data sheets. patient was transferred to her room on telemetry in satisfactory condition. Please see the cath report for details of the pressures and times. Complications: none Hemodynamic data: LVEDP was 20 mmHg. Angiographic data: The left main coronary was large and had minimal luminal irregularities. The left anterior descending artery was large. There is one major diagonal. the LAD itself had minimal luminal regularities. The proximal stent, which jailed major diagonal, has a 0% residual. However at the origin of the diagonal , there was an 80% or greater proximal/ostial narrowing. The left circumflex system was moderate to large. It was 1 major obtuse marginal and 1 posterior lateral branches. there were minimal luminal irregularities in this vessel. The right coronary artery was large in size, dominant vessel with the PDA and post lateral branch. there is no significant disease within this vessel CAIN left ventriculography revealed severe global left systolic dysfunction, LVEF was about 30%. there was severe mid and distal anterolateral dyskinesis. After intervention of the ostium of the diagonal, there is a less than 10% residual. There is CARLOS grade 3 flow. There is minimal plaque shifting into the LAD. It had a residual narrowing of maybe 20%. Angiogram of the right femoral artery revealed the puncture site to be in a large vessel, above the bifurcation. It was suitable for a clocure device. Impression: Significant ostial stenosis of the major diagonal-this is in assisted from a prior stent to the LAD Mild disease in other vessels Moderate to severe global left systolic dysfunction, LVEF about 30% Anterolateral and apical dyskinesis Moderate elevation of LVEDP, 20 mmHg Status post successful PTCA of the in jailed ostium of the diagonal, 3.0 x 15 mm NC Trek, to 10 russell, minimal plaque shifting into the LAD Angiogram right femoral artery Angio-Seal of the right femoral artery-successful- Loading with 90 mg of Brilinta, as he had already received 90 mg earlier this morning Plan/recommendations: Will need his study is apparent that the norman-infarct zone of ischemia is probably involving this diagonal. I Intervened. Hopefully he will be better. It might lessen some of his dyspnea on exertion. Meanwhile he will be on the usual medicines for LV systolic dysfunction. His heart rate is slow, so his metoprolol has been held. Maybe could use a very low dose of carvedilol which would be a milder beta-farhana might be better for his LV systolic dysfunction and not cause a significant amount of bradycardia. the patient will have risk factors optimized. The patient will be on antiplatelet medications to include aspirin indefinitely and Plavix or Brilinta for at least a year. Follow-up will be scheduled. Addenda: I saw the patient post-cath. the groin puncture site and distal pulse are stable. vital signs are stable and the patient will be observed closely overnight. Specimens: none sent Estimated blood loss: minimal Condition: stable Anesthesia: local, conscious sedation Disposition: floor Additional CC's: Brayan Astudillo Anesthesia: local Surgeon / Physician: Harman Hope Mechanical Supervisor: other Estimated blood loss: minimal Specimens: none sent Condition: stable Disposition: floor
[2016-08-25 18:12] LABS: Troponin I Only 0.195 NG/ML (0.00-0.045)
[2016-08-25] MEDS: ROSUVASTATIN 20 MG TABLET PO SCH (21:57)
[2016-08-26 02:38] LABS: Calcium 8.2 MG/DL (8.5-10.1); Osmolality,Calculated 281.1 MOS/KG (273-304); Potassium 3.8 MMOL/L (3.5-5.1)
[2016-08-26 02:41] LABS: Albumin 3.2 G/DL (3.4-5.0); Basophils % 0.5 % (0.0-0.8); Bilirubin,Total 0.5 MG/DL (0.2-1.0); Calcium 8.4 MG/DL (8.5-10.1); Eosinophils # 0.2 10*3/uL (0.0-0.87); Eosinophils % 2.8 % (0.00-10.9); Hematocrit 40.5 VOL% (42.0-52.0); Hemoglobin 13.9 GM/DL (14.0-18.0); Immature Granulocytes % 0.3 %; Immature Granulocytes Absolute 0.02 #; Lymphocytes # 1.9 10*3/uL (1.4-4.0); Lymphocytes % 24.6 % (21.2-54.2); Mean Corpuscular HGB Conc 34.3 GM/DL (32-36); Mean Corpuscular Hemoglobin 32 PG (27-34); Mean Corpuscular Volume 93.3 FL (87-102); Mean Platelet Volume 11.5 FL (9.6-12.0); Monocytes # 0.7 10*3/uL (0.11-0.8); Monocytes % 8.4 % (1.7-12.7); Neutrophils % 63.4 % (38.7-73.9); Platelet Count 151 T/CUMM (130-400); Red Blood Count 4.34 MC/CUMM (3.8-5.5); Red Cell Distribution Width 13.5 % (9.3-17.3); Total Protein 5.8 G/DL (6.4-8.3); White Blood Count 7.9 T/CUMM (4-12)
[2016-08-26 02:42] LABS: Osmolality,Calculated 281.1 MOS/KG (273-304); Potassium 3.8 MMOL/L (3.5-5.1)
[2016-08-26 02:46] LABS: Troponin I Only 0.216 NG/ML (0.00-0.045)
[2016-08-26] MEDS: SODIUM CHLORIDE 0.9% 1,000 ML IV SCH ×2 (04:21→15:46)
--- NOTE | 2016-08-26 07:19 | EKG Report ---
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
[2016-08-26] MEDS: TICAGRELOR 90 MG TABLET PO SCH (08:51)
[2016-08-26] MEDS: PANTOPRAZOLE 40 MG TABLET PO SCH (08:51)
[2016-08-26] MEDS: LOSARTAN 25 MG TABLET PO SCH (08:51)
[2016-08-26] MEDS: SPIRONOLACTONE 25 MG TABLET PO SCH (08:51)
[2016-08-26] MEDS: ASPIRIN EC 81 MG TABLET PO SCH (08:51)
--- NOTE | 2016-08-26 15:17 | Discharge Summary ---
Dalila, Lisa Beatty RN, am scribing for, and in the presence of, Jeremy Thompson MD 15:17. Hospital Course - Hospital Course Hospital Course: PRIMARY DEPUTY ATTORNEY GENERAL: DR. HOPE ([facility]) SUMMARY: Mr. Noel is a 76 year old white male with risk factors significant for: age, hypertension, hyperlipidemia, tobaccoism, personal history of CAD. Past medical history includes [place] and previous coronary stenting (reports 3 years ago in [place], [place]). Currently smokes 1/2 PPD cigarettes. He was admitted to [facility] on August [address] transfer from the [facility] for evaluation of abnormal EKG. EKG interpretation suggested "recent anterolateral WA." Patient was not having any chest pain or tightness, shortness of breath, or other associated symptoms. He was admitted for rule out and ACS protocol was initiated. Echocardiogram on day of admission anteroseptal, anterior, anterolateral akinesis, small hyperdense mass at age of apical apex suggestive of old thrombus , and severely reduced LV systolic function with EF 20%, grade 1 diastolic dysfunction, no significant valvular disease. Myocardial SPECT scan revealed patient with poor exercise tolerance, and also noted severely dilated left ventricle with depressed systolic function, and superimposed ischemia. Patient did have some progressive dyspnea with exertion. Troponin levels remained in the raya zone peaking at 0.216. He was referred for cardiac catheterization to define coronary anatomy and undergo percutaneous coronary intervention as indicated. This was carried out per Dr. Hope on the morning of August 25 with the following impressions and plan: Impression: Significant ostial stenosis of the major diagonal-this is in snf from a prior stent to the LAD Mild disease in other vessels Moderate to severe global left systolic dysfunction, LVEF about 30% Anterolateral and apical dyskinesis Moderate elevation of LVEDP, 20 mmHg Status post successful PTCA of the in jailed ostium of the diagonal, 3.0 x 15 mm NC Trek, to 10 russell, minimal plaque shifting into the LAD Angiogram right femoral artery Angio-Seal of the right femoral artery-successful- Loading with 90 mg of Brilinta, as he had already received 90 mg earlier this morning Plan/recommendations: Will need his study is apparent that the norman-infarct zone of ischemia is probably involving this diagonal. I Intervened. Hopefully he will be better. It might lessen some of his dyspnea on exertion. Meanwhile he will be on the usual medicines for LV systolic dysfunction. His heart rate is slow, so his metoprolol has been held. Maybe could use a very low dose of carvedilol which would be a milder beta-farhana might be better for his LV systolic dysfunction and not cause a significant amount of bradycardia. the patient will have risk factors optimized. The patient will be on antiplatelet medications to include aspirin indefinitely and Plavix or Brilinta for at least a year. Follow-up will be scheduled. Patient is seen and examined the morning after cardiac catheterization and PCI. He is awake and alert, and he is pleasant. Sitting up on the side of the bed , and his appetite this morning is excellent. Denies chest pain or tightness, dyspnea at rest or light activity, nausea or vomiting, palpitations, or other complaint. He is requesting to be discharged home today. RFA cath site with moderate amount ecchymotic bruising but no hematoma. No femoral bruit appreciated. Distal pulses are present and palpable bilaterally. Labs reviewed. H&H is stable, PLTs 151,000. Electrolytes are within acceptable range. Renal function is unchanged with creatinine 0.8 GFR 106. Instructed patient to ambulate this morning with groin precautions. Voiced understanding. He was seen and evaluated per cardiac rehab yesterday morning. Also, he is a current everyday smoker. Discussed importance of tobacco use cessation and alternatives were discussed with him per cardiac rehab nurses. Blood pressure has been stable and 114/67 this morning. Sinus bradycardia per telemetry monitoring with heart rate in the 50s. No overt ectopy or sustained dysrhythmia. Greater than 10 minutes has been spent discussing the importance and benefits of tobacco cessation. Patient has reached maximum hospital benefit at this time, and he will be discharged home today. He will be given 2 week follow-up appointment with Dr. Hope at [facility] clinic. At time of visit he will need an EKG, CBC, BMP, and magnesium level. New discharge medications will include rosuvastatin, Brilinta , and low-dose aspirin. We are also had a low-dose carvedilol 3.125 mg by mouth twice daily. He will be given prescriptions for these medications. He will also given a prescription card for his Brilinta Post cath instructions and groin precautions have been discussed with him. He voices understanding. He will be given printed instructions on these also. - Time spent with patient Time with patient DS: Greater than 30 minutes Time spent discussing smoking cessation with patient: more than 10 minutes Diagnosis - Discharge Diagnosis (1) NSTEMI (non-ST elevated myocardial infarction) Status: Resolved (2) Ischemic cardiomyopathy Status: Chronic (3) History of coronary artery disease Status: Chronic (4) Smoker Status: Chronic (5) HTN (hypertension) Status: Chronic (6) Hyperlipidemia Status: Chronic (7) GERD (gastroesophageal reflux disease) Status: Chronic Specialty Discharge - Follow Up or Referrals Follow up with: Harman Hope MD [Physician] - 2 Weeks (Follow-up with Dr. Hope at [facility] with mag MICHELLE, CBC, EKG) Discharge Plan - Discharge Data Disposition: Disch To Home/Self Care Condition at Discharge: Stable Discharge Diet: heart healthy, low fat, low cholesterol, low salt diet Activity: resume usual activities as tolerated, no lifting, other (Post cardiac catheterization instructions) Hygiene: may shower (No tub bathing for 1 week) Weight Bearing at Discharge: weight bear as tolerated Driving: not until seen by doctor Contact your physician if you experience:: fever over 101, Difficulty voiding, Redness or swelling, Nausea/Vomiting, Shortness of breath, Bleeding, pain uncontrolled by pain medications - Discharge Medications New Aspirin EC Tab 81 mg PO DAILY #30 tablet Carvedilol [Coreg] 3.125 mg PO BID #60 tablet Rosuvastatin [Crestor] 40 mg PO BEDTIME #30 tablet Ticagrelor [Brilinta] 90 mg PO BID #60 tablet Continue Spironolactone 25 mg PO DAILY Omeprazole [Prilosec] 40 mg PO DAILY Losartan [Cozaar] 25 mg PO DAILY Tramadol HCl [Tramadol Tab] 50 mg PO Q8H PRN PRN Reason: Pain Discontinued Lovastatin 40 mg PO BEDTIME Metoprolol Succinate 75 mg PO DAILY - Follow Up or Referral Follow Up: Harman Hope MD [Physician] - 2 Weeks (Follow-up with Dr. Hope at [facility] with mag MICHELLE, CBC, EKG) - Forms/Instructions Instructions: Myocardial Infarction (GEN), Left Heart Catheterization (DC), Heart Healthy Diet (GEN), Coronary Intravascular Stent Placement, Costing Analyst (GEN) Exam - Constitutional Vitals: Period Temp Pulse Resp BP Sys/Heredia Pulse Ox Last 24 Hr 97.8 F-98.3 F 55-75 16-18 113-129/67-81 95-98 Exam: General appearance: normal weight, no acute distress - Head Head exam: Present: normal inspection, normocephalic - Eye Eye exam: Absent: conjunctival injection, scleral icterus Pupils: Absent: dilated - ENT ENT exam: Present: normal external ear exam - Neck Neck exam: Present: normal inspection, no JVD or bruit - Respiratory Respiratory exam: Present: clear to auscultation bilaterally. Absent: decreased breath sounds, rhonchi, stridor, wheeze, rales - Cardiovascular Cardiovascular exam: Present: regular rhythm, systolic murmur, bradycardia. Absent: JVD, tachycardia, - GI/Abdominal GI/Abdominal exam: Present: normal bowel sounds, soft. Absent: Tenderness, firm , guarded. - Extremities Exam Extremities exam: Present: normal inspection, normal capillary refill, full range of motion, capillary refill normal. Absent: edema, calf tenderness. Other: RFA cath site with moderate ecchymotic bruising around the arteriotomy. No hematoma or femoral bruit. Peripheral pulses present, equal, and palpable throughout. - Back Exam Back exam: Present: normal inspection, no tenderness - Neurological Exam Neurological exam: Present: alert, oriented X3. Grossly intact without tremor appreciated. - Psychiatric Psychiatric exam: Present: normal affect, normal mood. Absent: Depression, anxiety - Skin Skin exam: Present: normal color, warm, dry. Absent: cyanosis, diaphoresis, rash, suspicious lesion. Discharge Results Labs on day of discharge: Labs from last 24 hours 08/26/16 08/26/16 08/26/16 01:21 01:21 01:21 WBC 7.9 D RBC 4.34 Hgb 13.9 L Hct 40.5 L MCV 93.3 MCH 32 MCHC 34.3 RDW 13.5 Plt Count 151 MPV 11.5 Neut % (Auto) 63.4 Lymph % (Auto) 24.6 [place] % (Auto) 8.4 Eos % (Auto) 2.8 Baso % (Auto) 0.5 Neut # (Auto) 5.0 Lymph # (Auto) 1.9 [place] # (Auto) 0.7 Eos # (Auto) 0.2 Baso # (Auto) 0.0 Immature Gran % 0.3 Nucleated RBC % 0.0 Immature Gran # 0.02 Nucleated RBCs # 0.00 Sodium 142 142 Potassium 3.8 3.8 Chloride 107 107 Carbon Dioxide 26 26 Anion Gap 12.8 12.8 BUN 13 12 Creatinine 0.80 0.80 GFR Calculation 106 106 BUN/Creatinine Ratio 16.00 15.00 Glucose 85 87 Calculated Osmolality 281.1 281.1 Calcium 8.2 L 8.4 L Magnesium 2.0 Total Bilirubin 0.50 AST 27 ALT 29 Alkaline Phosphatase 74 Total Creatine Kinase CK-MB (CK-2) Troponin I Total Protein 5.8 L Albumin 3.2 L Globulin 2.6 Albumin/Globulin Ratio 1.2 08/26/16 08/25/16 01:21 16:53 WBC RBC Hgb Hct MCV MCH MCHC RDW Plt Count MPV Neut % (Auto) Lymph % (Auto) [place] % (Auto) Eos % (Auto) Baso % (Auto) Neut # (Auto) Lymph # (Auto) [place] # (Auto) Eos # (Auto) Baso # (Auto) Immature Gran % Nucleated RBC % Immature Gran # Nucleated RBCs # Sodium Potassium Chloride Carbon Dioxide Anion Gap BUN Creatinine GFR Calculation BUN/Creatinine Ratio Glucose Calculated Osmolality Calcium Magnesium Total Bilirubin AST ALT Alkaline Phosphatase Total Creatine Kinase 40 36 L CK-MB (CK-2) < 1.0 < 1.0 Troponin I 0.216 H 0.195 H Total Protein Albumin Globulin Albumin/Globulin Ratio - Imaging and Cardiology Cardiology Procedure: image reviewed by me, report reviewed by me DS: Provider Attending physician on admission: Jeremy Thompson MD Consults: 08/22/16 18:39 Consult to Cardiac Rehabilitation [CONS] Routine Reason for Cardiac Rehabilitation: Risk Factor Modification 08/25/16 09:00 Consult to Cardiac Rehabilitation [CONS] Routine Reason for Cardiac Rehabilitation: Risk Factor Modification Home Exercise Program/Khoi Appt Out Pt Cardiac Rehab Expected date of discharge: 08/26/16 Jay Conner Wesley, MD, personally performed the services described in this documentation, ascribed by Lisa Beatty RN in my presence, and it is both accurate and complete 517 .
[2016-08-26 16:48] VITALS: BP 108/64
[2016-08-26] MEDS ORDERED: CARVEDILOL 3.125 MG TABLET PO SCH (21:00)
== END 2016-08-26 17:35 | disposition home or self-care (01) | DRG 251 ==
LOC: EDSEX → N.ED 14:32 → N.EDINP 14:32 → N.TELES 19:30
PROVIDERS: ADMIT Internal Medicine Clinical Cardiac Electrophysiology; ATTEND Internal Medicine Clinical Cardiac Electrophysiology
PROC: CLCCHCL (ICD-10-PCS; 2016-08-25 07:45)

== ENCOUNTER 2017-09-04 06:57 | Observation (INO) ==
[2017-09-04] MEDS ORDERED: ASPIRIN CHEW 81 MG TABLET PO STA (07:20)
[2017-09-04] MEDS ORDERED: POTASSIUM CHLORIDE 20 MEQ TABLET PO PRN (10:21)
[2017-09-04] MEDS ORDERED: MAGNESIUM SULF RIDER 4 GM in PREMIX 1 EACH IV PRN (10:21)
[2017-09-04] MEDS ORDERED: MAGNESIUM SULF RIDER 2 GM in PREMIX 1 EACH IV PRN (10:21)
[2017-09-04] MEDS ORDERED: MORPHINE 4 MG/1 ML VIAL IV PRN (10:21)
[2017-09-04] MEDS ORDERED: ONDANSETRON 4 MG/2 ML VIAL IV PRN (10:21)
[2017-09-04] MEDS ORDERED: ACETAMINOPHEN 325 MG TABLET PO PRN (10:21)
[2017-09-04] MEDS ORDERED: NITROGLYCERIN SL 0.4 MG TABLET SL PRN (10:24)
[2017-09-04] MEDS ORDERED: ENOXAPARIN 40 MG/0.4 ML SYRINGE SUBCUT SCH (12:00)
[2017-09-04] MEDS: SODIUM CHLORIDE 0.45% 1,000 ML IV SCH (12:41)
[2017-09-04] MEDS: TICAGRELOR 90 MG TABLET PO SCH (20:49)
[2017-09-04] MEDS: CARVEDILOL 3.125 MG TABLET PO SCH (20:49)
[2017-09-04] MEDS ORDERED: ROSUVASTATIN 20 MG TABLET PO SCH (21:00)
[2017-09-05] MEDS: SODIUM CHLORIDE 0.45% 1,000 ML IV SCH (01:50)
[2017-09-05 05:09] LABS: Calcium 8.6 MG/DL (8.5-10.1); Osmolality,Calculated 273.7 MOS/KG (273-304); Potassium 3.8 MMOL/L (3.5-5.1); Risk Ratio 1.52; VLDL CHOLESTEROL 12.8 MG/DL
[2017-09-05] MEDS ORDERED: FUROSEMIDE 40 MG/4 ML VIAL IV ONE (08:45)
[2017-09-05] MEDS: TICAGRELOR 90 MG TABLET PO SCH (08:47)
[2017-09-05] MEDS: CARVEDILOL 3.125 MG TABLET PO SCH (08:47)
[2017-09-05] MEDS ORDERED: SPIRONOLACTONE 25 MG TABLET PO SCH (09:00)
[2017-09-05] MEDS ORDERED: ASPIRIN EC 81 MG TABLET PO SCH (09:00)
[2017-09-05] MEDS ORDERED: PANTOPRAZOLE 40 MG TABLET PO SCH (09:00)
[2017-09-05] MEDS ORDERED: LOSARTAN 25 MG TABLET PO SCH (09:00)
[2017-09-05 11:37] VITALS: BP 111/66
== END 2017-09-05 14:30 | disposition home or self-care (01) ==
LOC: EDUNIT# → EDBD → N.ED 06:57 → N.EDINP 06:57 → N.TELES 11:11
PROVIDERS: ADMIT Internal Medicine Cardiovascular Disease; ATTEND Internal Medicine Cardiovascular Disease